=== PATIENT | female | born 1990 | race Caucasian/White ===

== ENCOUNTER 2016-08-09 19:33 | Emergency (ER) | payer OTHER ==
[~2016-08-09 19:33] MED LIST: ALBU6.7H; ALBU8.5H3 INH; CIPR500T94 PO; CYCL10TA2 PO; CYCL15CA14; DIPH25CA58 PO; FLUT1DIS5 IH; GUAI-40 PO; HYDR-2666 PO; HYDR-971; HYDR-971 PO; IBUP200T43 PO; IBUP400T; IBUP800T PO; LORA10TA68 PO; MOME17SP NS; MONT10TA9 PO; NAPR500T PO; ONDA4TAB10 PO; ONDA4TAB10 SL; ONDA4TAB12 PO; ONDA8TAB12 PO; PRED50TA PO; QUET25TA5 PO; SERT25TA PO
[2016-08-09 19:44] VITALS: BP 130/89
--- NOTE | 2016-08-09 20:14 | PHYS DOC ---
General Chief Complaint: NAUSEA/VOMITING/DIARRHEA Stated Complaint: N/V/D Time Seen by MD: 19:44 Source: patient Problems: History of Present Illness Initial Comments Patient here for left low posterior chest pain. Patient says his been present for 3 weeks. She says as a sharp pain over the left low posterior chest wall. Worse with cough and deep breath. There is no history of trauma or strain. Patient does state she has back pain periodically from scoliosis, this is a different sensation as her scoliosis pain is usually in the low back. When asked what made her come in today, she says she was just tired of it and wanted to know what it was. She said she made an appointment with her primary care physician but cannot be seen until next week. Patient has multiple other complaints including nasal congestion, nausea, and diarrhea. She's had no distinct fever or chills. She's had some nasal congestion the last several weeks as well without runny nose. There is no earache or sore throat. She has no shortness of breath with this chest discomfort. She says she's felt intermittent nausea but had no vomiting today. This going on for a number of weeks as well. She has no abdominal pain. There is no change in bladder habits. No vaginal bleeding or discharge. She states she's had 4-5 episodes of diarrhea today without blood or bilious material, but with all these multiple complaints she didn't indicates the main reason she is here is for her left posterior wall chest discomfort. Patient states she is taking multiple [id number] medications including natural remedies, ibuprofen, Naprosyn, and other medications without help. She notes the pain is worse with cough and deep breath. She notes no other increased or decreasing factors. Patient's past medical history is remarkable for depression and asthma. She takes Prozac and has an inhaler. She is a nonsmoker and nonuser of ethanol. Allergies: Coded Allergies: Sulfa (Sulfonamide Antibiotics) (Verified Allergy, Severe, RASH HIVES, ) Past Medical History Medical History: asthma, GERD, other Surgical History: noncontributory Psychosocial History: depression Family History Significant Family History: no pertinent family hx Social History Smoker: non-smoker Alcohol: none Review of Systems All Other Systems: Reviewed and Negative Physical Exam General Appearance: WD/WN, no apparent distress Ear, Nose, Throat: normal ENT inspection, normal pharynx Neck: full range of motion, supple, normal inspection Respiratory: lungs clear, normal breath sounds, no respiratory distress, other Cardiovascular: regular rate, rhythm, no edema Gastrointestinal: non tender, soft, no organomegaly Back: no CVA tenderness, no vertebral tenderness Extremities: non-tender, normal inspection, no pedal edema Neurologic/Psychiatric: alert, normal mood/affect, oriented x 3 Skin: normal color Lymphatic: no adenopathy Comments Generally this is a well-developed well-nourished white female in no acute distress. Subjective complaints of pain significantly outweigh the lack of objective signs of discomfort. She is sitting up playing on her cell phone. Vitals are as noted. Pertinent findings on physical exam shows ears and throat are clear. Neck is supple without adenopathy or JVD. There's no meningeal signs. Chest is clear to auscultation bilaterally. Patient is tender over the left low posterior chest wall. There is no signs of trauma. There is no crepitus. Palpation does increase reproduce her pain. There is no bony tenderness in the area. Patient has no CVA tenderness in the back is otherwise clear. Cardiac vascular exam shows regular rate and rhythm without murmur. The abdomen is soft and nontender without masses or megaly. External show no rash cyanosis or edema. Neurologic exam finds the patient awake alert oriented and cooperative. Remainder of physical exam is clinically unremarkable. Orders, Labs, Meds Old charts note the patient's a chronic user of the emergency department. This is her first visit visit this year, she was here 13 times in 2016 for a variety of complaints including costochondritis, back pain, pharyngitis, insect bites, otitis, asthma, bursitis, vomiting, gastroenteritis. She was seen here 9 times in the latter half of 2014 as well. I did discuss with the patient early in her ER course her frequent use of ER services. I discussed with her the number time she had been to the ER in 2016. She says she hasn't been here for quite a while. Discussed with her that she was here more than once a month, and asked if that seems excessive to her. She states that she is always been sick since she is child asked, the ER frequently despite having a primary care physician. I asked her if she felt most people came to the ER over once a month and she had no answer. I also reminded that she been in the ER 9 times in the last 6 months 2014, and again asked if that seemed excessive to her. She had no response that time. Labs clear clinically unremarkable. test is negative. There is no evidence of UTI or hematuria. Chest x-ray shows no acute changes per the emergency physician. 2119 Patient continues rest comfortably in the ED, in no acute distress. On reevaluation, she says continued to have pain. Her pain remains to be palpable specifically over the left lower area of the rib cage without signs of trauma or deformity. I discussed with the patient most likely cause her discomfort is related to muscular skeletal thoracic pain. We discussed home care including rest, ice, and these discomforts tender linger because of the work of breathing. She is multiple NSAID medications without help. She says she has a childhood history of seizure medication so he can use Ultram, but I really don' t think this requires narcotics. Ago and prescribed some Norflex as a muscle relaxant and encourage her to continue use Tylenol and [id number] products for pain. She voices understanding need to follow up with primary care asked week, as she had planned on doing, or return to the ER sooner as needed if worsening anyway. She looks well, in no acute discomfort or stress, okay for discharge home at this time. Given her frequency of the ER use and her perceived lack of insight into her pattern of ER use, I fully expect that we'll see her back again in fairly short order for similar minor complaints. ANA MEJIA MD Aug 09, 2016 20:14
[2016-08-09 20:56] LABS: BILIRUBIN,URINE NEG (NEG); CLARITY,URINE HAZY; COLOR,URINE YELLOW; GLUCOSE,URINE NEG (NEG)
[2016-08-09 20:57] LABS: NITRITE,URINE NEG (NEG); UROBILINOGEN,URINE 0.2 mg/dL (0.2 mg/dL)
[2016-08-09 20:58] LABS: BACTERIA,URINE FEW /HPF (0-FEW); SQUAMOUS EPITHELIAL CELL,UR MANY /LPF
--- NOTE | 2016-08-10 08:04 | RAD ---
Chest, 2 views, 08/09/2016: History: Cough, chest wall pain, congestion Comparison is made to a study from 03/27/2016. The heart size and pulmonary vascularity are normal. No pulmonary infiltrates are seen. There is no evidence of pleural fluid. IMPRESSION: No acute cardiopulmonary abnormality is detected.
== END 2016-08-09 21:45 | disposition home or self-care (01) ==
LOC: ER 19:35
DX: R07.81 Pleurodynia (principal); R05 Cough; M54.9 Dorsalgia, unspecified; R19.7 Diarrhea, unspecified; F32.9 Major depressive disorder, single episode, unspecified; J45.909 Unspecified asthma, uncomplicated; K21.9 Gastro-esophageal reflux disease without esophagitis
CPT/HCPCS: 71020; 81001; 81025; 99285-25